=== PATIENT | male | born 1965 | race Two or more races ===

== ENCOUNTER 2016-12-04 20:51 | Inpatient (IN) | payer OTHER ==
--- NOTE | ~2016-12-04 | CT2 ---
[facility] A Service of [facility] RADIOLOGY TEXT RESULTS PATIENT: KEN DELACRUZ LOCATION: [facility] [id number] : [birth year] UNIT #: [id number] AGE: [address]: Abrahan Quiros MD SEX: M ORDER DR: [id number] [facility]. [place], [place] [address] [id number] I MR#: [id number] Acc #: [id number] NAME: KEN DELACRUZ : 1965 SEX: M STUDY DATE/TIME: 12/04/2016 21:56 UNIT: [facility] ROOM: [id number] STUDY DESCRIPTION: CT Abd and Pelv W Cont Attending Physician: Abrahan Quiros Jr., M.D. Ordering Physician: Wei Richards M.D. Primary Care Physician: Primary Care Physician No MEDICAL IMAGING REPORT This report is preliminary unless electronic signature is present EXAM CT abdomen and pelvis INDICATION Generalized abdominal pain for 2 hours. Lower abdominal pain. TECHNIQUE CT of the abdomen and pelvis utilizing 100 mL Isovue-370 IV contrast. Coronal and sagittal reconstructions were obtained. This CT exam was performed with one or more of the following radiation dose reduction techniques: automatic exposure control, adjustment of mA and/or kV according to patient size, and iterative reconstruction. COMPARISON CT abdomen and pelvis dated 08/19/2016. FINDINGS The liver is unchanged. There is a calcified gallstone in the gallbladder. Pancreas, spleen, adrenal glands, and kidneys are within normal limits. No hydronephrosis. The bowel is not dilated. There is a focal area of diverticulitis in the sigmoid colon. This is similar location as the diverticulitis seen on the prior study. A small intramural abscess is suspected along the posterior margin of dilated sigmoid colon measuring up to 1.5 cm. No abscess or perforation. There is a right lateral abdominal hernia between the right rectus abdominis muscle and the right external oblique muscle. This contains some omental fat. No complicating features. Bladder is unremarkable. No enlarged pelvic or inguinal lymph nodes. [facility] A Service of [facility] RADIOLOGY TEXT RESULTS PATIENT: KEN DELACRUZ LOCATION: [facility] [id number] : [birth year] UNIT #: [id number] AGE: [address]: Abrahan Quiros MD SEX: M ORDER DR: No acute osseous abnormalities. IMPRESSION 1. Acute sigmoid colon diverticulitis. There is a small intramural abscess along the inferior margin of the sigmoid colon. No extraluminal abscess is identified. 2. Right lateral abdominal hernia is unchanged from prior studies. Dictated by... Steve Ludwig M.D. THIS IS AN ELECTRONICALLY VERIFIED REPORT Steve Ludwig M.D. at 12/05/2016 3:18 PM CORTES/yudelka TD: 12/05/2016 02:55 JOB #: [id number] MEDICAL IMAGING REPORT Page 1 of 1 COPY
--- NOTE | ~2016-12-04 | DS ---
Unit #: [id number] #: [id number] Patient: KEN DELACRUZ [id number] [place], [place] [address] [id number] I MR#: [id number] NAME: KEN DELACRUZ ROOM: [facility] Age: 51 Sex: M Admission Date: 12/04/2016 : 1965 Discharge Date: 12/07/2016 Attending Physician: Abrahan Quiros Jr., M.D. Primary Care Physician: No Primary Care Physician DISCHARGE SUMMARY HISTORY AND EXAM Mr. Mauro Goff is an otherwise healthy 51-year-old gentleman who presented to the emergency room complaining of left lower quadrant pain and a CT scan in the ER showed inflammation of the sigmoid colon for presumed diverticulitis. His white count was 10,900 and he was afebrile but he did have significant tenderness and guarding in the left lower quadrant suprapubic area. Urinalysis was negative for infection, and his chemistries were all normal. By history he had been admitted to [facility] with similar problems in August of 2016 and after reviewing the records he had a colonoscopy at that time that showed no diverticula but he did have some mild left-sided colitis. With that information he was started on Azulfidine and we were able to advance his diet. He remained afebrile with stable vital signs. His repeat white count was 6,000 with a normal differential and his hemoglobin and hematocrit were stable. His tenderness was markedly improved but not completely resolved today but he was tolerating a diet and stated he had two normal formed bowel movements without blood yesterday. He also was complaining of some allergy symptoms and was given some Zyrtec, and that seemed to relieve his symptoms. He is ambulating without difficulty. He will be discharged home today, with instructions to stay on a bland diet. DISCHARGE INSTRUCTIONS He can do diet and activity as tolerated. He is to stay off work until he is seen in the office. DISCHARGE MEDICATIONS He was given a prescription for Azulfidine 500 mg p.o. q.i.d. to stay on continuously until re-evaluated and some hydrocodone 5 mg tablets to use on a p.r.n. basis. FOLLOWUP He was given my office number to call for followup. Med reconciliation sheet was completed. Dictated by... John Felix M.D. GEETHA/roxane TD: 12/08/2016 08:55 JOB #: [id number] Unit #: [id number] #: [id number] Patient: KEN DELACRUZ DISCHARGE SUMMARY Page 1 of 1 X John Felix MD X DISCHARGE SUMMARY
--- NOTE | ~2016-12-04 | CO ---
Unit #: [id number] #: [id number] Patient: KEN DELACRUZ [id number] [facility]. [place], [place] [address] [id number] I MR#: [id number] NAME: KEN DELACRUZ ROOM: [id number] Age: 51 Sex: M Admission Date: 12/04/2016 : 1965 Attending Physician: Abrahan Quiros Jr., M.D. Consultation Date: 12/05/2016 CONSULTATION REPORT HISTORY AND EXAM The patient is a 51-year-old male with history of hypertension, and diverticulosis with a previous episode of diverticulitis requiring hospitalization in 07/2012 at [facility]. Since that time, he has been treated as an outpatient with amoxicillin and Flagyl by his primary care physician. He recently was put on those medications, but has had progression of his discomfort and is now complaining of worsening left lower quadrant pain. He denies nausea, vomiting, fever, chills, hematemesis, hematochezia, or melena. In the emergency room, a CT scan was consistent with acute sigmoid diverticulitis with a small contained non-drainable abscess. PAST MEDICAL HISTORY He has had a previous appendectomy, history of hypertension. ALLERGIES No allergies to medication. MEDICATIONS He is on a blood pressure medication, the name of which he cannot recall. I have asked his to bring that in. FAMILY HISTORY He is unaware of any chronic or inheritable diseases in the family. 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 He smokes 2 packs a day. Social alcohol drinker. and is at the bedside. REVIEW OF SYSTEMS Denies fever, chills, night sweats, hematemesis, hematochezia, melena, or weight loss. He has had a previous colonoscopy at [facility], but he cannot recall the results other than diverticulosis. PHYSICAL EXAMINATION VITAL SIGNS: Temperature is 97.8, pulse 105 and regular, respirations 16, blood pressure 151/91. GENERAL: He is awake, alert, and oriented, cooperative, but obviously in discomfort. HEENT: No carotid bruits. No scleral icterus. CARDIAC: Regular rate and rhythm without murmur. LUNGS: Clear. ABDOMEN: Slightly distended. He guards throughout the left lower Unit #: [id number] #: [id number] Patient: ELAM GUSTAVO,KEN quadrant into the suprapubic area. He has a palpable hernia at his old appendectomy site. EXTREMITIES: No edema. NEUROLOGIC: Grossly intact. SKIN: No skin rashes or lesions. DIAGNOSTIC STUDIES LABORATORY RESULTS: Comprehensive metabolic panel is within normal limits. Lipase is normal. Hemoglobin 13.9, white count 10,800 with normal differential, platelets 189,000. Urinalysis negative for infection. IMAGING STUDIES: CT scan as described. ASSESSMENT AND PLAN A 51-year-old gentleman with acute diverticulitis with a small contained intramural abscess. He has failed outpatient antibiotics and will be admitted for IV antibiotics and observation. I discussed with the patient and his that we will continue antibiotics and hopefully he will resolve nonoperatively; however, should he fail to improve clinically or show evidence of worsening sepsis, then he may need surgical intervention. I will request his previous records from [facility] to review his endoscopic evaluation. Dictated by... Wilber Manzano/anders TD: 12/05/2016 07:30 JOB #: [id number] CONSULTATION REPORT Page 1 of 1 X John Felix MD CONSULTATION REPORT
[2016-12-04 19:08] LABS: BASOPHIL# 0.1 X10e3 (0-0.3); EOSINOPHIL# 0.5 X10e3 (0-0.7); EOSINOPHIL% 3.6 % (0.0-7.0); HEMATOCRIT 47.9 % (38.0-50.0); HEMOGLOBIN 15.9 gm/dL (13.0-16.0); LYMPHOCYTE# 3.1 X10e3 (1.0-3.5); LYMPHOCYTE% 21.4 % (17.0-45.0); MEAN CELL VOLUME 89.7 FL (83-96); MEAN CORPUSCULAR HEMOGLOBIN 29.7 PG (28-34); MEAN CORPUSCULAR HGB CONC 33.2 g/dL (30-36); MEAN PLATELET VOLUME 9.8 FL (6.5-11.5); MONOCYTE# 0.7 X10e3 (0-1.0); MONOCYTE% 5.2 % (3.0-12.0); NEUTROPHIL% 68.8 % (40-75); PLATELET COUNT 227 X10e3 (140-420); RED BLOOD COUNT 5.34 X10e (3.90-5.60); RED CELL DISTRIBUTION WIDTH 14.7 % (11.0-15.5); WHITE BLOOD COUNT 14.5 X10e3 (4.0-10.5)
[2016-12-04 19:12] LABS: DIFF IND NO
[2016-12-04 19:31] LABS: ALBUMIN SERUM 4.4 g/dL (3.5-5.0); ALKALINE PHOSPHATASE 118 U/L (32-92); ALT (SGPT) 18 U/L (10-40); AST (SGOT) 19 U/L (10-42); BILIRUBIN,TOTAL 0.3 mg/dL (0.2-2.0); BLOOD UREA NITROGEN 14 mg/dL (9-23); CARBON DIOXIDE 27 mmol/L (22-31); CHLORIDE 102 mmol/L (100-111); CREATININE SERUM 0.8 mg/dL (0.6-1.4); GLOM FILT RATE Estimated 104.2 mL/min (>60); GLUCOSE FASTING 121 mg/dL (70-110); LIPASE 31 U/L (22-51); POTASSIUM 3.5 mmol/L (3.5-5.1); PROTEIN TOTAL SERUM 7.5 g/dL (6.0-8.3); SODIUM 138 mmol/L (135-145)
[2016-12-04 19:32] LABS: BILIRUBIN, DIRECT <0.1 mg/dL (0.0-0.2); BILIRUBIN,INDIRECT 0.2 mg/dL (0.0-0.9)
[2016-12-04 20:18] LABS: URINE SOURCE CLEAN CATCH
[2016-12-04 20:28] LABS: URINE BILIRUBIN NEG (NEG); URINE BLOOD NEG (NEG); URINE COLOR YELLOW; URINE GLUCOSE NEG (NEG); URINE KETONE NEG (NEG); URINE LEUKOCYTE ESTERASE NEG (NEG); URINE NITRATE NEG (NEG); URINE PH 6.5 (5-8); URINE PROTEIN NEG (NEG); URINE SPECIFIC GRAVITY 1.024 (1.003-1.035)
[2016-12-04 20:32] LABS: CULTURE INDICATED? NO
[2016-12-05 04:56] LABS: BASOPHIL# 0.1 X10e3 (0-0.3); BASOPHIL% 0.8 % (0-2.5); EOSINOPHIL# 0.4 X10e3 (0-0.7); EOSINOPHIL% 3.4 % (0.0-7.0); HEMATOCRIT 41.4 % (38.0-50.0); LYMPHOCYTE# 2.8 X10e3 (1.0-3.5); LYMPHOCYTE% 25.4 % (17.0-45.0); MEAN CELL VOLUME 89.4 FL (83-96); MEAN CORPUSCULAR HGB CONC 33.6 g/dL (30-36); MEAN PLATELET VOLUME 9.8 FL (6.5-11.5); MONOCYTE# 0.9 X10e3 (0-1.0); MONOCYTE% 8.7 % (3.0-12.0); NEUTROPHIL# 6.7 X10e3 (1.5-7.1); NEUTROPHIL% 61.7 % (40-75); PLATELET COUNT 189 X10e3 (140-420); RED BLOOD COUNT 4.63 X10e (3.90-5.60); RED CELL DISTRIBUTION WIDTH 14.7 % (11.0-15.5); WHITE BLOOD COUNT 10.8 X10e3 (4.0-10.5)
[2016-12-05 04:59] LABS: DIFF IND NO; HEMOGLOBIN 13.9 gm/dL (13.0-16.0)
[2016-12-05] MEDS ORDERED: ZESTORETIC 10-1 EAC1 PO (10:45)
[2016-12-05] MEDS ORDERED: ASPIRIN81 M2 PO (10:54)
[2016-12-06 06:12] LABS: BASOPHIL# 0.1 X10e3 (0-0.3); EOSINOPHIL# 0.4 X10e3 (0-0.7); EOSINOPHIL% 6.5 % (0.0-7.0); HEMATOCRIT 43.3 % (38.0-50.0); HEMOGLOBIN 14.5 gm/dL (13.0-16.0); LYMPHOCYTE# 1.9 X10e3 (1.0-3.5); LYMPHOCYTE% 31.6 % (17.0-45.0); MEAN CELL VOLUME 90.4 FL (83-96); MEAN CORPUSCULAR HEMOGLOBIN 30.3 PG (28-34); MEAN CORPUSCULAR HGB CONC 33.5 g/dL (30-36); MEAN PLATELET VOLUME 9.4 FL (6.5-11.5); MONOCYTE# 0.5 X10e3 (0-1.0); MONOCYTE% 8.6 % (3.0-12.0); NEUTROPHIL# 3.1 X10e3 (1.5-7.1); NEUTROPHIL% 52.3 % (40-75); PLATELET COUNT 172 X10e3 (140-420); RED BLOOD COUNT 4.79 X10e (3.90-5.60); RED CELL DISTRIBUTION WIDTH 14.8 % (11.0-15.5)
[2016-12-06 06:16] LABS: DIFF IND NO
[2016-12-06 06:52] LABS: CALCIUM SERUM 8.6 mg/dL (8.4-10.2); CREATININE SERUM 0.7 mg/dL (0.6-1.4); GLOM FILT RATE Estimated 110.1 mL/min (>60); PHOSPHOROUS 3.4 mg/dL (2.5-4.6); POTASSIUM 4.5 mmol/L (3.5-5.1)
[2016-12-07] MEDS ORDERED: AZULFIDINE PO (07:13)
[2016-12-07] MEDS ORDERED: TYL325 PO (07:14)
[2016-12-07] MEDS ORDERED: CLARITIN10 M3 PO (07:15)
[2016-12-07] MEDS ORDERED: HYDROCODON-ACE1 EAC7 PO (07:18)
== END 2016-12-07 09:14 | disposition home or self-care (01) | DRG 392 ==
LOC: CED 20:51 → CEDOF 22:48 → C2A 12-05 19:40
PROVIDERS: Specialist; Surgery
DX: K57.20 Diverticulitis of large intestine with perforation and abscess without bleeding (principal); I10 Essential (primary) hypertension; K52.9 Noninfective gastroenteritis and colitis, unspecified; K63.5 Polyp of colon; F17.210 Nicotine dependence, cigarettes, uncomplicated
CPT/HCPCS: 36415; 74177; 80048; 80076; 81003; 83690; 83735; 84100; 85025; 96361; 96374; 96375; 99285; J1650; J2270; J2405; J2543; J2550; Q9967

== ENCOUNTER → 2017-02-17 | Outpatient (CLI) | payer OTHER ==
[~2017-02-17] MED LIST: ASPIRIN81 M2 PO; AZULFIDINE PO; CLARITIN10 M3 PO; HYDROCODON-ACE1 EAC7 PO; TYL325 PO; ZESTORETIC 10-1 EAC1 PO
--- NOTE | ~2017-02-17 | CT3 ---
[facility] A Service of [facility] RADIOLOGY TEXT RESULTS PATIENT: KEN DELACRUZ [facility] [birth year] UNIT #: [id number] AGE: [address]: FEDE JOSHI APRN SEX: M ORDER DR: [id number] [facility] [address] [facility] [address] [place], [place] [address] [id number] O MR#: [id number] Acc #: [id number] NAME: KEN DELACRUZ : 1965 SEX: M STUDY DATE/TIME: 02/17/2017 9:19 UNIT: [facility] ROOM: STUDY DESCRIPTION: CT Abd and Pelv WWo Cont Attending Physician: Fede Joshi Referring Physician: Fede Joshi Ordering Physician: Parth Joshi Aprn Primary Care Physician: Nikhil Rendon M.D. MEDICAL IMAGING REPORT This report is preliminary unless electronic signature is present EXAM CT abdomen without contrast, CT abdomen and pelvis with contrast INDICATIONS Followup renal lesion. Observation for cyst versus mass. PROCEDURE Unenhanced CT of the abdomen. Postcontrast CT of the abdomen and pelvis with multiphase acquisition through the kidneys. This CT exam was performed with one or more of the following radiation dose reduction techniques: automatic control, adjustment of mA and/or kV according to patient size, and iterative reconstruction. COMPARISON 08/19/2016 FINDINGS ABDOMEN WITHOUT CONTRAST: Included lung bases are clear. 4 mm stone in the gallbladder. No radiodense renal calculus. ABDOMEN WITH CONTRAST: Liver spleen adrenal glands pancreas unremarkable. There is a delayed enhancement at the fundus of the gallbladder, possibly with some focal adenomyomatosis. No appreciable surrounding active inflammation. The bowel loops are nondilated. There is a 8.2 cm fat-containing hernia in the right lower quadrant. Neck measures 1.9 cm. This is similar to the previous study. The kidneys enhance symmetrically. Small left renal cysts, including a 1 cm benign proteinaceous or hemorrhagic cyst in the left mid kidney. This was the lesion of concern on the patient's previous study. No evidence for an enhancing renal mass. [facility] A Service of [facility] RADIOLOGY TEXT RESULTS PATIENT: KEN DELACRUZ LOCATION: [facility] : [birth year] UNIT #: [id number] AGE: [address]: FEDE JOSHI APRN SEX: M ORDER DR: PELVIS WITH CONTRAST: No pelvic mass or fluid. No aggressive appearing bone lesion. IMPRESSION 1. Left renal cysts including a 10 mm benign proteinaceous or hemorrhagic cyst in the left kidney. There is no evidence for enhancing renal mass. 2. Small stone in the gallbladder. There is delayed gallbladder wall thickening, particularly at the fundus which may represent adenomyomatosis. Could also represent changes of chronic cholecystitis. No evidence for active inflammation by CT. 3. Stable right lower quadrant fat-containing ventral hernia Dictated by... Haider Elder M.D. THIS IS AN ELECTRONICALLY VERIFIED REPORT Haider Elder M.D. at 02/20/2017 10:12 PM WANDA/maci TD: 02/17/2017 14:50 JOB #: [id number] MEDICAL IMAGING REPORT Page 1 of 1 COPY
[2017-02-17 10:56] LABS: POC - CREATININE 0.84 mg/dL (0.64-1.27); POC - GFR >60.0 mL/min (>60)
== END | disposition home or self-care (01) ==
LOC: CCAT 08:09
PROVIDERS: Nurse Practitioner Family
DX: N28.1 Cyst of kidney, acquired (principal); K80.20 Calculus of gallbladder without cholecystitis without obstruction; K43.9 Ventral hernia without obstruction or gangrene
CPT/HCPCS: 74178; 82565; Q9967